=== PATIENT | female | born 1935 | race African-American/Black ===

== ENCOUNTER → 2017-09-26 14:11 | Outpatient (CLI) | payer MEDICARE, BC ==
[~2017-09-26 14:11] MED LIST: CATAPRES0.2 MG PO; DECADRON4 MG PO; LISINOPRIL-HCTZ1 T13 PO; METOPROLOL TART50 MG PO; ULTRAM50 MG PO
[2017-10-14 13:39] VITALS: BMI 22.7
== END | disposition home or self-care (01) ==
LOC: D.MAMMO 08-24 11:30
DX: Z12.31 Encounter for screening mammogram for malignant neoplasm of breast (principal)

== ENCOUNTER 2017-10-13 18:10 | Emergency (ER) | payer MEDICARE, BC ==
[2017-10-13 19:12] LABS: ALBUMIN 3.7 g/dL (3.4-5.0); ANION GAP 13.2 mmol/L (8-16); BILIRUBIN - TOTAL 0.4 mg/dL (0.2-1.3); CALCIUM 9.4 mg/dL (8.5-10.1); CARBON DIOXIDE 28.4 mmol/L (21.0-32.0); POTASSIUM - SERUM 3.6 mmol/L (3.5-5.1); PROTEIN - SERUM 7.4 g/dL (6.4-8.2)
[2017-10-14] MEDS ORDERED: CATAPRES0.2 MG PO (11:48)
[2017-10-14] MEDS ORDERED: LISINOPRIL-HCTZ1 T13 PO (11:49)
[2017-10-14] MEDS ORDERED: METOPROLOL TART50 MG PO (11:49)
[2017-10-14] MEDS ORDERED: ULTRAM50 MG PO (11:50)
[2017-10-14 13:39] VITALS: BMI 22.7
== END 2017-10-13 19:39 | disposition home or self-care (01) ==
LOC: D.ER 18:10
PROVIDERS: Family Medicine
DX: I10 Essential (primary) hypertension (principal); S39.012A Strain of muscle, fascia and tendon of lower back, initial encounter; X58.XXXA Exposure to other specified factors, initial encounter; Y93.89 Activity, other specified; Y92.89 Other specified places as the place of occurrence of the external cause

== ENCOUNTER 2017-10-14 06:45 | Inpatient (IN) | payer MEDICARE, BC ==
[~2017-10-14] VITALS: Ht 157.5 cm; Wt 56.4 kg
--- NOTE | 2017-10-14 11:25 | NUR ---
RECEIVED TO ROOM 2225 FROM ER VIA STRETCHER. TRANSFERRED TO BED IN ROOM. SCDs APPLIED TO BLE. BED ALARM TURNED ON. CALL LIGHT IN REACH. WILL CONTINUE WITH PLAN OF CARE.
[2017-10-14] MEDS ORDERED: CATAPRES0.2 MG PO (11:48)
[2017-10-14] MEDS ORDERED: METOPROLOL TART50 MG PO (11:49)
[2017-10-14] MEDS ORDERED: LISINOPRIL-HCTZ1 T13 PO (11:49)
[2017-10-14] MEDS ORDERED: ULTRAM50 MG PO (11:50)
--- NOTE | 2017-10-14 12:15 | NUR ---
BP 213/89. CLONIDINE PO WITH DECADRON AND GABAPENTIN PO. C/O PAIN OF 7. DILAUDID AND ZOFRAN SIVP. BROTHER IN ROOM. CALL LIGHT IN REACH.
[2017-10-14 12:32] VITALS: BP 213/89; BMI 22.7
[2017-10-14 12:56] VITALS: BP 213/89
[2017-10-14 13:39] VITALS: Ht 157.5 cm; Wt 56.4 kg
--- NOTE | 2017-10-14 14:20 | NUR ---
RESTING WITH EYES CLOSED. RESP EVEN AND UNLABORED. CALL LIGHT IN REACH. BED ALARM ON.
[2017-10-14 16:15] VITALS: BP 167/72
--- NOTE | 2017-10-14 16:50 | NUR ---
FAMILY IN ROOM AT THIS TIME. DENIES NEEDS. CALL LIGHT IN REACH.
--- NOTE | 2017-10-14 18:32 | NUR ---
ISIDRA AND NOHEMY ADAMS. NO CHANGES IN INITIAL ASSESSMENT. SCDs TO BLE. BED ALARM ON. CALL LIGHT IN REACH. WILL CONTINUE WITH PLAN OF CARE.
--- NOTE | 2017-10-14 19:15 | NUR ---
RECEIVED CARE FROM DAY NURSE. PT LYING IN BED IN MID FOWLERS POSTION. COMPANY AT SIDE. REPORTS NO NEEDS AT THIS TIME. IV TO RIGHT FA SL AND PATENT.
[2017-10-14 20:00] VITALS: BP 152/67
[2017-10-14 23:52] VITALS: BP 186/85
--- NOTE | 2017-10-15 02:59 | NUR ---
RN NOTE: PT RESTING IN LOW LEDBETTER'S POSITION WITH EYES CLOSED AND UNLABORED BREATHING. IV IN RIGHT FA SALINE LOCKED. O2 IN USE VIA NC. WILL CONTINUE TO MONITOR FOR NEEDS. CALL LIGHT WITHIN REACH.
[2017-10-15 03:49] VITALS: BP 130/62
[2017-10-15 06:23] LABS: BASOPHILS 0 % (0-2); EOSINOPHILS 0 % (0-7); HEMATOCRIT 33.8 % (36.0-48.0); HEMOGLOBIN 11.1 g/dL (12-16); IMMATURE GRANULOCYTES 0.1 % (0-5); LYMPHOCYTES 4.7 % (15-50); MCH 26.7 pg (26.0-34.0); MCHC 32.8 g/dL (31.0-37.0); MCV 81.4 fL (80.0-100.0); MEAN PLATELET VOLUME 9.3 fL (7.4-10.4); MONOCYTES 1.9 % (2-11); NEUTROPHILS 93.3 % (40-80); PLATELET COUNT 247 10x3/uL (130-400); RBC 4.15 10x6/uL (4.00-5.40); WBC 7.9 10x3/uL (4.8-10.8)
[2017-10-15 06:52] LABS: ANION GAP 8.2 mmol/L (8-16); BILIRUBIN - TOTAL 0.39 mg/dL (0.2-1.3); CARBON DIOXIDE 29.8 mmol/L (21.0-32.0); CREATININE - SERUM 0.9 mg/dL (0.6-1.3); PROTEIN - SERUM 6.5 g/dL (6.4-8.2)
--- NOTE | 2017-10-15 07:37 | NUR ---
REPORT RECIEVED, ASSUMED CARE OF PT. RESTING, EASILY AROUSED, FAMILY AT BEDSIDE. NO NEEDS VOICED AT THIS TIME. BED IN LOWEST POSITION, SIDE RAILS UP X 2, CALL LIGHT WITHIN REACH.
[2017-10-15] MEDS ORDERED: DECADRON4 MG PO (08:16)
[2017-10-15 09:26] VITALS: BP 172/69
--- NOTE | 2017-10-15 10:27 | NUR ---
DISCHARGE INSTRUCTIONS GIVEN TO PT AND FAMILY ORDERED, VERBALIZED UNDERSTANDING AND SIGNED. ALL QUESTIONS ANSWERED. R FOREARM IV D/C'D AT THIS TIME, CATHETER INTACT, BLEED CONTROL, BANDAGE APPLIED. FAMILY AT BEDSIDE.
--- NOTE | 2017-10-15 10:35 | NUR ---
PT DISCHARGED FROM FACILITY VIA WHEELCHAIR TO FAMILY VEHICLE. PERSONAL BELONGINGS WITH PT.
== END 2017-10-15 10:36 | disposition home or self-care (01) | DRG 552 ==
LOC: D.ER 06:45 → D.MS 09:36
PROVIDERS: ADMIT Family Medicine
DX: S32.2XXA Fracture of coccyx, initial encounter for closed fracture (principal); E87.1 Hypo-osmolality and hyponatremia; I10 Essential (primary) hypertension; M62.830 Muscle spasm of back; W07.XXXA Fall from chair, initial encounter; S30.0XXA Contusion of lower back and pelvis, initial encounter; M62.831 Muscle spasm of calf

== ENCOUNTER → 2017-11-02 10:41 | Outpatient (CLI) | payer MEDICARE, BC ==
[2017-10-14 13:39] VITALS: BMI 22.7
== END | disposition home or self-care (01) ==
LOC: D.MRI 11-01 11:06
DX: M54.16 Radiculopathy, lumbar region (principal)

== ENCOUNTER → 2018-09-27 17:57 | Outpatient (CLI) | payer MEDICARE, BC ==
[2017-10-14 13:39] VITALS: BMI 22.7
== END | disposition home or self-care (01) ==
LOC: D.MAMMO 08-16 11:15
DX: Z12.31 Encounter for screening mammogram for malignant neoplasm of breast (principal)

== ENCOUNTER 2019-09-28 09:00 | Outpatient (CLI) | payer MEDICARE, BC ==
[2017-10-14 13:39] VITALS: BMI 22.7
== END 2019-09-28 10:00 | disposition home or self-care (01) ==
LOC: D.MAMMO 09:00
PROVIDERS: ATTEND Family Medicine
DX: Z12.31 Encounter for screening mammogram for malignant neoplasm of breast (principal)

== ENCOUNTER → 2019-12-27 09:42 | Outpatient (CLI) | payer MEDICARE, BC ==
[2019-11-30 19:09] VITALS: BMI 24.7
[~2019-12-27 09:42] MED LIST changes: +EDARBYCLOR; +LISINOPRIL-HCT1 EAC8 PO
== END | disposition home or self-care (01) ==
LOC: D.CT 09:42
PROVIDERS: ATTEND Internal Medicine Interventional Cardiology
DX: I10 Essential (primary) hypertension (principal)

== ENCOUNTER → 2019-12-28 11:04 | Outpatient (CLI) | payer MEDICARE, BC ==
[2019-11-30 19:09] VITALS: BMI 24.7
== END | disposition home or self-care (01) ==
LOC: D.CT 11:00
PROVIDERS: ATTEND Family Medicine
DX: H53.8 Other visual disturbances (principal)